=== PATIENT | male | born 1975 | race Caucasian/White ===

== ENCOUNTER → 2017-03-24 15:34 | Outpatient (CLI) | payer OTHER ==
[2017-03-24 15:55] LABS: CALC OSMOLALITY 283 mosm/kg (275-300); CALCIUM 8.6 mg/dL (8.5-10.1); CARBON DIOXIDE 28.1 mmol/L (21.0-32.0); CHLORIDE - SERUM 101 mmol/L (98-107); CREATININE - SERUM 0.9 mg/dL (0.6-1.3); GLUCOSE 132 mg/dL (74-106); POTASSIUM - SERUM 4.2 mmol/L (3.5-5.1); SODIUM 139 mmol/L (136-145); UREA NITROGEN 25 mg/dL (7-18); VANCOMYCIN - TROUGH 6.9 ug/mL (10.0-20.0); eGFR NON AFRICAN AMERICAN > 90 mL/min (90-120)
== END | disposition home or self-care (01) ==
LOC: D.LAB 15:34
PROVIDERS: Orthopaedic Surgery
DX: T81.4XXA Infection following a procedure, initial encounter (principal); Z79.2 Long term (current) use of antibiotics

== ENCOUNTER 2020-08-19 23:36 | Emergency (ER) | payer BC ==
[~2020-08-19] VITALS: Ht 175.3 cm; Wt 90.7 kg
[2020-08-19 23:37] VITALS: Ht 175.3 cm; Wt 90.7 kg
[2020-08-19] MEDS ORDERED: COZAAR100 MG PO (23:38)
[2020-08-20 00:05] LABS: EOSINOPHILS 2.6 % (0-7); HEMATOCRIT 44.2 % (42.0-54.0); HEMOGLOBIN 15.4 g/dL (13.5-17.5); LYMPHOCYTES 38.4 % (15-50); MCH 29.1 pg (26.0-34.0); MCHC 34.9 g/dL (31.0-37.0); MCV 83.5 fL (80.0-100.0); MEAN PLATELET VOLUME 8.3 fL (7.4-10.4); MONOCYTES 7.4 % (2-11); NEUTROPHILS 50.6 % (40-80); RBC 5.29 10x6/uL (4.20-6.10); RDW 12.6 % (11.5-14.5); WBC 5.8 10x3/uL (4.8-10.8)
[2020-08-20 00:12] LABS: CALC OSMOLALITY 280 mosm/kg (275-300); CARBON DIOXIDE 25.1 mmol/L (21.0-32.0); CHLORIDE - SERUM 104 mmol/L (98-107); CREATININE - SERUM 0.9 mg/dL (0.6-1.3); GLUCOSE 116 mg/dL (74-106); POTASSIUM - SERUM 3.7 mmol/L (3.5-5.1); SODIUM 138 mmol/L (136-145); UREA NITROGEN 25 mg/dL (7-18); eGFR NON AFRICAN AMERICAN > 90 mL/min (90-120)
[2020-08-20 00:13] LABS: PLATELET COUNT 187 10x3/uL (130-400)
[2020-08-20 00:24] LABS: APTT 28.3 SECONDS (22.8-39.4); INR 1.06 (0.85-1.17); PROTIME 12.8 SECONDS (11.6-15.0)
[2020-08-20 00:31] LABS: ALBUMIN 3.6 g/dL (3.4-5.0); ALKALINE PHOSPHATASE 96 U/L (30-120); BILIRUBIN - TOTAL 0.33 mg/dL (0.2-1.3); CKMB 1.1 U/L (0.0-3.6); CREATINE KINASE 158 UL (21-232); MAGNESIUM - SERUM 1.9 mg/dL (1.8-2.4); PROTEIN - SERUM 7.6 g/dL (6.4-8.2); TROPONIN-I < 0.017 ng/mL (0.000-0.060)
[2020-08-20 00:33] LABS: ALT (SGPT) 41 U/L (10-68)
[2020-08-20 01:37] VITALS: BP 122/80
== END 2020-08-20 01:38 | disposition home or self-care (01) ==
LOC: D.ER 23:36
PROVIDERS: Family Medicine
DX: R07.89 Other chest pain (principal); I10 Essential (primary) hypertension